=== PATIENT | male | born 1985 | race Caucasian/White ===

== ENCOUNTER 2019-01-18 10:48 | Emergency (ER) | payer BC ==
[2019-01-18] MEDS ORDERED: Dexamethasone 4 MG/ML SDV IM ONE (11:34)
[2019-01-18] MEDS ORDERED: Acetaminophen/oxyCODONE 325-5 MG Tab PO ONE ×2 (11:34→11:42)
--- NOTE | 2019-01-18 11:40 | EDM.PDOC ---
ED HPI GENERAL MEDICAL PROBLEM - General Chief Complaint: General Stated Complaint: TMJ Time Seen by Provider: 01/18/19 11:33 Source of Information: Reports: Patient History Limitations: Reports: No Limitations - History of Present Illness INITIAL COMMENTS - FREE TEXT/NARRATIVE: Patient is a 33-year-old gentleman who presents to the emergency department this afternoon with a complaint of bilateral TMJ pain. Patient states this is a chronic condition however worsens at times. Since yesterday the pain has been excruciating. Patient states several years ago he was injured while in the [employer], however, did not fractured jaw. Patient denies fever, recent dental procedures, difficulty swallowing, headache, chest pain, shortness of breath, any recent trauma, or any allergies to typical pain relief type medication. Onset: Gradual Duration: Chronic, Intermittent Location: Reports: Face Quality: Reports: Pressure, Sharp Severity: Moderate Improves with: Reports: None Worsens with: Reports: Other (Mastication) Associated Symptoms: Reports: No Other Symptoms. Denies: Fever/Chills, Nausea/ Vomiting Treatments SAFETY COMPLIANCE SPECIALIST: Reports: NSAIDS Right Jaw Pain Score (Numeric/FACES): 35 - Related Data Allergies Allergy/AdvReac Type Severity Reaction Status Date / Time Sulfa (Sulfonamide Allergy Cannot Verified 01/18/19 10:53 Antibiotics) Remember Home Meds: Home Meds Ibuprofen 800 mg PO ASDIRECTED PRN 01/18/19 [History] Past Medical History HEENT History: Reports: Impaired Vision Cardiovascular History: Reports: None Respiratory History: Reports: None Gastrointestinal History: Reports: None Genitourinary History: Reports: None Musculoskeletal History: Reports: Other (See Below) Other Musculoskeletal History: TMJ discomfort Neurological History: Reports: None Psychiatric History: Reports: None Endocrine/Metabolic History: Reports: None Hematologic History: Reports: None Immunologic History: Reports: None Oncologic (Cancer) History: Reports: None Dermatologic History: Reports: None - Infectious Disease History Infectious Disease History: Reports: Chicken Pox - Past Surgical History HEENT Surgical History: Reports: Tonsillectomy Cardiovascular Surgical History: Reports: None Respiratory Surgical History: Reports: None GI Surgical History: Reports: None Dermatological Surgical History: Reports: None Social & Family History - Family History Family Medical History: Noncontributory - Tobacco Use Smoking Status *Q: Current Every Day Smoker Years of Tobacco use: 10 Packs/Tins Daily: 0.5 - Caffeine Use Caffeine Use: Reports: Energy Drinks - Recreational Drug Use Recreational Drug Use: No ED ROS GENERAL - Review of Systems Review Of Systems: ROS reveals no pertinent complaints other than HPI. Constitutional: Reports: No Symptoms HEENT: Reports: Other (TMJ mandible pain). Denies: Throat Pain, Throat Swelling Respiratory: Reports: No Symptoms Cardiovascular: Reports: No Symptoms Endocrine: Reports: No Symptoms GI/Abdominal: Reports: No Symptoms : Reports: No Symptoms Musculoskeletal: Reports: No Symptoms Skin: Reports: No Symptoms Neurological: Reports: No Symptoms Psychiatric: Reports: No Symptoms Hematologic/Lymphatic: Reports: No Symptoms Immunologic: Reports: No Symptoms ED EXAM, GENERAL - Physical Exam Exam: See Below Exam Limited By: No Limitations General Appearance: Alert, WD/WN, Moderate Distress Eye Exam: Bilateral Eye: Normal Inspection Ears: Normal External Exam, Normal Canal, Normal TMs Nose: Normal Inspection, Normal Mucosa, No Blood Throat/Mouth: Normal Lips, Normal Oropharynx, No Airway Compromise, Other ( Bilateral mandible TMJ, obvious clicking with mastication. Extensive dental caries and dental erosion. However, spares upper molar regions. No abscess noted) Neck: Normal Inspection, Supple, Non-Tender. No: Lymphadenopathy (L), Lymphadenopathy (R) Respiratory/Chest: No Respiratory Distress, Lungs Clear Neurological: Alert, Oriented, Normal Cognition Psychiatric: Normal Affect, Normal Mood Skin Exam: Warm, Dry, Intact, Normal Color, No Rash Lymphatic: No Adenopathy Course - Vital Signs Last Recorded V/S: Last Vital Signs Temp 98.9 F 01/18/19 10:57 Pulse 80 01/18/19 10:57 Resp 16 01/18/19 10:57 BP 148/80 H 01/18/19 10:57 Pulse Ox 96 01/18/19 10:57 - Orders/Labs/Meds Orders: Active Orders 24 hr Category Date Time Status Acetaminophen/oxyCODONE [Percocet 325-5 MG] Med 01/18/19 11:34 Once 2 tab PO ONETIME ONE dexAMETHasone [Dexamethasone] Med 01/18/19 11:34 Once 8 mg IM ONETIME ONE - Re-Assessments/Exams Free Text/Narrative Re-Assessment/Exam: 01/18/19 11:45 Patient afebrile, vital signs stable, truly in discomfort. Patient was given 8 mg Decadron IM and 5 mg Percocet in ER. Patient was also given Percocet to go. Patient will follow-up with Radha Gutierres tomorrow for recommendation on surgical dentistry. Departure - Departure Time of Disposition: 11:46 Disposition: Home, Self-Care 01 Condition: Good Clinical Impression: TMJ (temporomandibular joint syndrome) - Discharge Information Instructions: Temporomandibular Joint Syndrome Referrals: Tracy Gutierres PA-C [Primary Care Provider] - Additional Instructions: Follow-up at [facility] tomorrow for recommendation of surgical dentistry. Return to emergency department sooner if symptoms continue or worsen. Take medication as directed. Avoid excessive jaw motion with food consumption. - My Orders Last 24 Hours: My Active Orders 01/18/19 11:34 Acetaminophen/oxyCODONE [Percocet 325-5 MG] 2 tab PO ONETIME ONE dexAMETHasone [Dexamethasone] 8 mg IM ONETIME ONE - Assessment/Plan Last 24 Hours: My Active Orders 01/18/19 11:34 Acetaminophen/oxyCODONE [Percocet 325-5 MG] 2 tab PO ONETIME ONE dexAMETHasone [Dexamethasone] 8 mg IM ONETIME ONE Assessment:: TMJ pain Plan: Follow-up with PCP and dentist
== END 2019-01-18 11:57 | disposition home or self-care (01) ==
LOC: KA.ED 10:48
DX: M26.603 Bilateral temporomandibular joint disorder, unspecified (principal); F17.210 Nicotine dependence, cigarettes, uncomplicated; Z88.2 Allergy status to sulfonamides
CPT/HCPCS: 96372; 99283; A9270; J1100

== ENCOUNTER 2021-09-23 16:37 | Emergency (ER) | payer BC | END 2021-09-23 17:28 | disposition home or self-care (01) | LOC: KA.ED 16:37 | DX: K04.7 Periapical abscess without sinus (principal); M26.621 Arthralgia of right temporomandibular joint; Z88.2 Allergy status to sulfonamides; Z72.0 Tobacco use | CPT/HCPCS: 99282; 99283 ==

== ENCOUNTER 2022-02-22 12:11 | Emergency (ER) | payer OTHER, BC ==
[2022-02-22] MEDS: Tetracaine HCl/PF 0.5% 4 ML Bottle ONE ×2 (12:28→12:29)
[2022-02-22] MEDS ORDERED: Tetracaine HCl/PF 0.5% 4 ML Bottle EYERT ONE (12:28)
[2022-02-22] MEDS ORDERED: Ciprofloxacin 0.3% Ophth Soln 5 ML Bottle EYERT SCH (12:45)
== END 2022-02-22 12:55 | disposition home or self-care (01) ==
LOC: KA.ED 12:11
DX: S05.01XA Injury of conjunctiva and corneal abrasion without foreign body, right eye, initial encounter (principal); Z88.2 Allergy status to sulfonamides; Z79.899 Other long term (current) drug therapy; W45.8XXA Other foreign body or object entering through skin, initial encounter
CPT/HCPCS: 99283; A9270-GY